=== PATIENT | female | born 1960 | race Caucasian/White ===

== ENCOUNTER → 2017-10-27 | Outpatient (CLI) | payer OTHER ==
--- NOTE | 2017-10-27 15:01 | MM ---
Reason for exam: screening (asymptomatic). Baseline mammogram. History: Patient is postmenopausal. Physical Findings: Nurse did not find any significant physical abnormalities on exam. MG Screening Mammo w CAD Bilateral CC and MLO view(s) were taken. The breast tissue is heterogeneously dense. This may lower the sensitivity of mammography. Focal asymmetry right anterior outer aspect. These results were verbally communicated with the patient and result sheet given to the patient on 10/27/17. ASSESSMENT: Incomplete: need additional imaging evaluation, BI-RAD 0 RECOMMENDATION: Special view mammogram of the right breast. If lesion persists on supplemental views, image directed ultrasound is recommended. [facility] will attempt to contact patient to return for supplemental views and ultrasound if indicated.
--- NOTE | 2017-10-27 15:02 | MM ---
Reason for exam: additional evaluation requested from abnormal screening. History: Patient is postmenopausal. Physical Findings: Breast exam preformed at baseline screening. MG Work Up Mamm w CAD RT Spot compression CC, spot compression MLO, and ML view(s) were taken of the right breast. Finding: There is a 12 mm circumscribed round mass in the upper quadrant, anterior position of the right breast and 7-8mm mass central aspect. These results were verbally communicated with the patient and result sheet given to the patient on 10/27/17. ASSESSMENT: Incomplete: need additional imaging evaluation, BI-RAD 0 RECOMMENDATION: Ultrasound of the right breast.
--- NOTE | 2017-10-27 15:05 | USB ---
Reason for exam: additional evaluation requested from abnormal screening. History: Patient is postmenopausal. US Breast Workup Limited RT Right limited breast ultrasound including focal area of concern, retroareolar and axilla demonstrates a 1.0 x 0.5 x 0.8cm oval, solid, hypoechoic lesion at 12 o'clock with slightly shadowing and a 0.4 x 0.3 x 0.4cm hypoechoic, vascular lesion at 9 o'clock possible benign lymph node. These results were verbally communicated with the patient and result sheet given to the patient on 10/27/17. ASSESSMENT: Suspicious, BI-RAD 4 RECOMMENDATION: Ultrasound core biopsy of the right breast. Called Dr. Early with mammographic findings and has scheduled an appointment for the patient for 11/14/17 at 1:[address] West. Biopsy scheduled for 11/17/17 at 8:00. PRELIMINARY REPORT CALLED AND FAXED TO DR. WEST ON 10/27/17.
== END | disposition home or self-care (01) ==
LOC: RADMAMWWP 12:43
PROVIDERS: ATTEND Family Medicine
DX: Z12.31 Encounter for screening mammogram for malignant neoplasm of breast (principal); R92.8 Other abnormal and inconclusive findings on diagnostic imaging of breast
CPT/HCPCS: 77065; 77067

== ENCOUNTER → 2017-11-14 | Outpatient (CLI) | payer OTHER ==
[2017-11-14 13:44] VITALS: BP 171/80; PULSE 90; RESP 16; TEMP 97.8; BMI 30.4
--- NOTE | 2017-11-14 13:55 | P.GSHP ---
History of Present Illness H&P Date: 11/14/17 Patient is a 57 year old white female who had her first mammogram on . She subsequently had additional views of her right breast and an ultrasound of the right breast. The patient was noted to have a 12 mm circumscribed round mass in the upper quadrant anterior portion of the right breast and a 78 mm mass in the central aspect. On ultrasound the patient was noted to have a 1 cm solid lesion at 12:00 and a slightly shadowing 0.4 cm hypoechoic lesion at 9:00 possibly representing a benign lymph node. The radiographs were reviewed with Dr. Chong from radiology and she would concur that only one lesion would warrant an ultrasound core biopsy and this is the lesion at 12:00. The patient is not feeling masses or lumps in her breast. The patient has no nipple discharge or skin changes of concern. The patient has not had any trauma or infection in the breast. Ann Model Risk Analysis: 1.5% 5 year risk compared with 1.7% average 59 year old female 8.3% life time risk compared with 9.3% for average 59 year old female Family history: 1. father: leukemia () Hormonal History: menarche: 10 : 2, 2 children first at 27, breast fed: none menopause: 50 BCP: 2 years hormones: none Past surgical history: 1. Thyroid resection half 2. Past Medical History: 1. HTN 2. reflux Social History: smoke: none alcohol: none drugs: none - Constitutional Constitutional: Denies chills, Denies fever - EENT Eyes: denies blurred vision, denies pain Ears: deny: decreased hearing, tinnitus Ears, nose, mouth and throat: Denies headache, Denies sore throat - Breasts Breasts: bilateral: as per HPI - Cardiovascular Cardiovascular: Reports high blood pressure - Respiratory Respiratory: Denies cough, Denies 7 - Gastrointestinal Gastrointestinal: Denies abdominal pain, Denies diarrhea, Denies nausea, Denies vomiting - Genitourinary (Female) Genitourinary: Denies dysuria, Denies hematuria - Menstruation Menstruation: Reports postmenopausal - Musculoskeletal Comment: no arthritis Musculoskeletal: Denies myalgias - Integumentary Integumentary: Denies pruritus, Denies rash - Neurological Neurological: Denies numbness, Denies weakness - Psychiatric Psychiatric: Denies anxiety, Denies depression - Endocrine Endocrine: Reports weight change, Denies fatigue - Hematologic/Lymphatic Comment: none - Allergic/Immunologic Comment: none Allergic/Immunologic: Reports as per HPI Past Medical History Past Medical History: GERD/Reflux, Hypertension History of Any Multi-Drug Resistant Organisms: None Reported Past Surgical History: Section Additional Past Surgical History / Comment(s): thyroid surgery 2011 Past Anesthesia/Blood Transfusion Reactions: No Reported Reaction Past Psychological History: No Psychological Hx Reported Smoking Status: Former smoker Past Alcohol Use History: Occasional Past Drug Use History: None Reported Medications and Allergies Home Medications Medication Instructions Recorded Confirmed Type Ascorbic Acid [Vitamin C] 500 mg PO DAILY 11/04/17 11/04/17 History Calcium/Magnesium/Zinc 1 each PO DAILY 11/04/17 11/04/17 History [Blvywqx-Xmykebghy-Gicq Tablet] Famotidine [Pepcid] 20 mg PO DAILY 11/04/17 11/04/17 History Loratadine [Claritin] 10 mg PO DAILY 11/04/17 11/04/17 History Metoprolol Succinate (ER) [Toprol 50 mg PO DAILY 11/04/17 11/04/17 History XL] Allergies Allergy/AdvReac Type Severity Reaction Status Date / Time No Known Allergies Allergy Verified 11/04/17 15:59 Surgical - Exam BP: 171/80 HR: 90 T: 97.8 R: 16 BMI 30.5 - General well developed, well nourished, no distress - Eyes normal ocular movement, no icteric - ENT no hearing loss, no congestion - Neck no masses, trachea midline - Respiratory normal respiratory effort, clear to auscultation - Cardiovascular Rhythm: regular Heart Sounds: normal: S1, S2 - Abdomen Abdomen: soft, non tender, no guarding, no rigid, no rebound - Integumentary normal turger - Neurologic no disoriented, no combative - Musculoskeletal normal gait, normal posture - Psychiatric oriented to time, oriented to person, oriented to place, speech is normal, memory intact Breast Exam: Right breast: Multi-positional exam no dominant masses or nodules of concern, fibrocystic changes Right axilla: No adenopathy of concern Left breast: Multi-positional exam no dominant masses or nodules of concern Left axilla: No adenopathy of concern Results Mammogram and ultrasound reviewed Assessment and Plan Assessment: Impression: 1. Radiographic abnormality right breast 2. Hypertension 3. Reflux 4. Ann risk evaluation below average for development of breast cancer Plan: 1. Ultrasound-guided core biopsy right breast 2. Follow-up after biopsy in 1 week 3. Medical management of medical problems Risk and benefits of ultrasound-guided core biopsy discussed with the patient she'll be scheduled in the near future CC: Dr. Early
== END ==
LOC: WWCWWP 13:00
PROVIDERS: ATTEND Surgery
DX: Z53.9 Procedure and treatment not carried out, unspecified reason (principal)

== ENCOUNTER → 2017-11-17 | Day surgery (SDC) | payer OTHER ==
[2017-11-17 12:19] VITALS: RESP 16; BMI 29.1
--- NOTE | 2017-11-17 13:45 | USB ---
EXAMINATION TYPE: US biopsy breast VAD RT, MG diagnostic mammo RT wo CAD DATE OF EXAM: 11/17/2017 CLINICAL HISTORY: R92.8 ABN MAMMO. Abnormal ultrasound. TECHNIQUE: Ultrasound guided core biopsy of right breast with clip placement and follow-up diagnostic two-view mammogram. COMPARISON: Mammogram and ultrasound October 27, 2017. FINDINGS: The procedure of ultrasound guided core biopsy was explained to the patient. Benefits, alternatives, and risks were discussed. An informed consent was then obtained. The patient was placed in supine positioning for imaging and for the procedure. Preprocedure ultrasound shows redemonstrates 10 x 4 x 7 mm oval hypoechoic area 12:00 position zone A in the right breast. The overlying skin was prepped and draped in usual sterile fashion. Lidocaine buffered with bicarbonate was used as anesthetic into the skin and subcutaneous tissue. Lidocaine with epinephrine is used as anesthetic into the deeper tissue up to area of concern in the right breast. Under ultrasound guidance, a 12-gauge vacuum assisted biopsy gun device was used to obtain 3 core samples. Following this, a biopsy clip was left in lesion. The patient tolerated the procedure well without any immediate complication. The patient was kept in the radiology department for short stay after the procedure and then discharged home in stable condition. Postprocedure mammogram shows successful deployment of clip corresponding to larger area of concern on mammogram. IMPRESSION: Successful, uncomplicated ultrasound guided core biopsy of area of concern in the right breast, full pathology results to follow. Low to intermediate index of suspicion noted at time of procedure. Pathology Results: Benign BREAST, RIGHT, ULTRASOUND GUIDED CORE BIOPSY: Fibroadenoma. Recommendation Follow up ultrasound of the right breast in 6 months. REGINA
[2017-11-17 13:46] VITALS: BP 134/85; PULSE 87; TEMP 98
== END ==
LOC: RADUSWWP 12:00
PROVIDERS: ATTEND Surgery
DX: D24.1 Benign neoplasm of right breast (principal)
CPT/HCPCS: 88305; 77065; 19083; A4648; J2001

== ENCOUNTER → 2017-11-25 | Outpatient (CLI) | payer OTHER ==
[2017-11-25 08:49] VITALS: BP 148/78; PULSE 78; RESP 12; TEMP 98; BMI 29.1
--- NOTE | 2017-11-25 09:07 | P.PN ---
Subjective Progress Note Date: 11/25/17 Principal diagnosis: Patient is status post ultrasound-guided core biopsy of the right breast The patient is a 57-year-old white female who was noted to have a radiographic abnormality in the right breast for which she underwent an ultrasound-guided core biopsy on [id number]. Pathology is consistent with a fibroadenoma. The patient did develop a small hematoma as well as some ecchymosis at the site of the biopsy. She has no evidence of any infection has not complained of any fever or chills. She has had some tenderness in the area but no pain for which she is concerned Objective - Vital Signs Vital signs: Vital Signs Temp 98 F 11/25/17 08:43 Pulse 78 11/25/17 08:43 Resp 12 11/25/17 08:43 BP 148/78 11/25/17 08:43 Pulse Ox 100 11/25/17 08:43 Intake & Output 11/24/17 11/25/17 11/25/17 18:59 06:59 18:59 Weight 79.379 kg - Exam BMI 29.1 - Constitutional General appearance: Present: obese - EENT Eyes: Present: EOMI ENT: Present: hearing grossly normal - Respiratory Respiratory: bilateral: CTA - Cardiovascular Rhythm: regular Heart sounds: normal: S1, S2 - Gastrointestinal General gastrointestinal: Present: soft - Integumentary Integumentary Comment(s): right breast: Right breast ecchymosis at the site of the core biopsy, small hematoma approximately 1 x 1.2 cm in size in the 12:00 area of the breast No other masses or nodules of concern Right axilla: No adenopathy of concern Evidence of any infection at this time - Musculoskeletal Musculoskeletal: Present: gait normal - Psychiatric Psychiatric: Present: A&O x's 3, appropriate affect, intact judgment & insight Assessment and Plan Assessment: Impression: 1. Fibroadenoma via core biopsy right breast 2. Hypertension and treated by medicine 3. Reflux 4. Ann risk evaluation is below average for development of breast cancer Plan: 1. Repeat right breast mammogram and ultrasound in 6 months with physician exam at that time 2. Medical management of medical problems Cc: Dr. Early
== END | disposition home or self-care (01) ==
LOC: WWCWWP 08:36
PROVIDERS: ATTEND Surgery
DX: Z53.9 Procedure and treatment not carried out, unspecified reason (principal)

== ENCOUNTER 2018-04-12 08:55 | Day surgery (SDC) | payer OTHER ==
[2018-04-07 15:42] VITALS: BMI 29.1
--- NOTE | 2018-04-12 08:45 | P.GSHP ---
History of Present Illness H&P Date: 04/12/18 CHIEF COMPLAINT: Colon screen HISTORY OF PRESENT ILLNESS: The patient is a 57-year-old female who presents for colon screen. Lower endoscopy was offered for further evaluation and management. PAST MEDICAL HISTORY: Please see list. PAST SURGICAL HISTORY: Please see list. MEDICATIONS: Please see list. ALLERGIES: Please see list. SOCIAL HISTORY: No illicit drug use FAMILY HISTORY: No reports of Crohn disease or ulcerative colitis. REVIEW OF ORGAN SYSTEMS: CONSTITUTIONAL: No reports of fevers or chills. PHYSICAL EXAM: VITAL SIGNS: Stable GENERAL: Well-developed pleasant in no acute distress. HEENT: No scleral icterus. Extraocular movements grossly intact. Moist buccal mucosa. NECK: Supple without lymphadenopathy. CHEST: Unlabored respirations. Equal bilateral excursions. CARDIOVASCULAR: Regular rate and rhythm. Distal 2+ pulses. ABDOMEN: Soft, nontender, nondistended. MUSCULOSKELETAL: No clubbing, cyanosis, or edema. ASSESSMENT: 1. Colon screen. PLAN: 1. Recommend proceeding with a lower endoscopy Past Medical History Past Medical History: GERD/Reflux, Hypertension Additional Past Medical History / Comment(s): seasonal allergies History of Any Multi-Drug Resistant Organisms: None Reported Past Surgical History: Section Additional Past Surgical History / Comment(s): thyroid surgery 2012 Past Anesthesia/Blood Transfusion Reactions: No Reported Reaction Smoking Status: Former smoker - Past Family History Father Family Medical History: Cancer Additional Family Medical History / Comment(s): leukemia Mother Family Medical History: Dementia, Deep Vein Thrombosis (DVT) Medications and Allergies Home Medications Medication Instructions Recorded Confirmed Type Famotidine [Pepcid] 20 mg PO DAILY PRN 11/04/17 04/07/18 History Loratadine [Claritin] 10 mg PO DAILY 11/04/17 04/07/18 History Metoprolol Succinate (ER) [Toprol 50 mg PO QAM 11/04/17 04/07/18 History XL] Multivitamins, Thera [Multivitamin 1 tab PO DAILY 04/07/18 04/07/18 History (formulary)] Allergies Allergy/AdvReac Type Severity Reaction Status Date / Time No Known Allergies Allergy Verified 04/07/18 15:34
[~2018-04-12 08:55] MED LIST: LACTATED RINGERS 1,000 ML IV SCH
[2018-04-12 09:33] VITALS: TEMP 98.7
[2018-04-12] MEDS ORDERED: LACTATED RINGERS 1,000 ML IV ONE (09:33)
[2018-04-12] MEDS ORDERED: LIDOCAINE 1% 20 ML VIAL (10MG/ML) FOR IV START INTRADERMA ONE (09:33)
[2018-04-12] MEDS ORDERED: PROPOFOL 10 MG/ML 20 ML VIAL IV ONE (10:13)
--- NOTE | 2018-04-12 10:40 | P.PCN ---
Date of Procedure: 04/12/18 Description of Procedure: PREOPERATIVE DIAGNOSIS: Colonoscopy screening, first POSTOPERATIVE DIAGNOSIS: Colonoscopy screening, first Diverticulosis, scattered. OPERATION: Colonoscopy to the ileocecal valve and appendiceal orifice. SURGEON: Ruby Iraheta MD. ANESTHESIA: MAC. INDICATIONS: The patient is a 57-year-old female who presents for her first colonoscopy screening. Benefits and risks were described and informed consent was obtained. DESCRIPTION OF PROCEDURE: The patient had undergone Gatorade, MiraLAX and Dulcolax prep. She had been brought into the operating room and laid in the left lateral decubitus position. After adequate intravenous sedation, the rectum was examined with 2% lidocaine jelly. No external hemorrhoids were encountered. The rectal tone was within normal limits. No lesions were palpated in the rectal vault. An Olympus colonoscope was advanced until the ileocecal valve and appendiceal orifice were clearly viewed. The prep was excellent with clear visualization of the mucosal folds. The scope was removed with visualization of each mucosal fold. Scattered diverticulosis was encountered. No colonic polyps were found. No evidence of focal colitis was found. No internal hemorrhoids were found. The colon was desufflated. The patient had tolerated the procedure well. Withdrawal time was over 6 minutes. FINDINGS: No internal hemorrhoids No external prolapsed hemorrhoids. No arteriovenous malformations. No adenomatous polyps. No focal colitis. Small-mouth minimal scattered diverticulosis RECOMMENDATIONS: Lower endoscopy in 10 years, 2028 Plan - Discharge Summary Discharge Rx Participant: No New Discharge Prescriptions: No Action Metoprolol Succinate (ER) [Toprol XL] 50 mg PO QAM Famotidine [Pepcid] 20 mg PO DAILY PRN PRN Reason: Dyspepsia Loratadine [Claritin] 10 mg PO DAILY Multivitamins, Thera [Multivitamin (formulary)] 1 tab PO DAILY Discharge Medication List Famotidine [Pepcid] 20 mg PO DAILY PRN 11/04/17 [History] Loratadine [Claritin] 10 mg PO DAILY 11/04/17 [History] Metoprolol Succinate (ER) [Toprol XL] 50 mg PO QAM 11/04/17 [History] Multivitamins, Thera [Multivitamin (formulary)] 1 tab PO DAILY 04/07/18 [History ] Follow up Appointment(s)/Referral(s): Ruby Iraheta MD [STAFF PHYSICIAN] - As Needed Patient Instructions/Handouts: Diverticulosis Diet (GEN), Diverticulosis (GEN) Activity/Diet/Wound Care/Special Instructions: Repeat colonoscopy in 10 years, 2028 Discharge Disposition: HOME SELF-CARE
[2018-04-12 10:44] VITALS: RESP 16
[2018-04-12 10:57] VITALS: BP 133/73; PULSE 64
== END 2018-04-12 11:07 | disposition home or self-care (01) ==
LOC: ORWHC2ENDO 08:55
PROVIDERS: ATTEND Surgery Plastic and Reconstructive Surgery
DX: Z12.11 Encounter for screening for malignant neoplasm of colon (principal); K57.30 Diverticulosis of large intestine without perforation or abscess without bleeding; K21.9 Gastro-esophageal reflux disease without esophagitis; I10 Essential (primary) hypertension; E04.1 Nontoxic single thyroid nodule; Z87.891 Personal history of nicotine dependence; Z79.899 Other long term (current) drug therapy
CPT/HCPCS: J2704; G0121

== ENCOUNTER → 2022-07-17 | Outpatient (CLI) | payer BC ==
--- NOTE | 2022-07-18 19:08 | XR ---
EXAMINATION TYPE: XR knee complete RT DATE OF EXAM: 07/17/2022 9:13 AM INDICATION: Patient age:Female; 62 years old; Reason for study: M25.561 pain R knee COMPARISON: None. TECHNIQUE: The Right knee(s) was examined in Frontal, lateral and oblique projections. FINDINGS: No evidence of any acute osseous pathology, soft tissue swelling, or joint effusion is no wing. Bony outpouching near the distal medial femoral metaphysis with continuous cortex. Degeneration changes with osteophytes of the femoral condyles, patella and the tibial plateau. Mild j oint space narrowing involving the medial knee. IMPRESSION: 1. No acute osseous pathology. 2. Mild tricompartmental osteoarthritic changes. 3. Suspected osteochondroma of the medial right femur. Consider further evaluation with MRI of the ri ght femur clinically warranted.
== END | disposition home or self-care (01) ==
LOC: RADXRMAIN 08:56
PROVIDERS: ATTEND Family Medicine
DX: M17.11 Unilateral primary osteoarthritis, right knee (principal)

== ENCOUNTER → 2023-11-11 | Outpatient (CLI) | payer MEDICARE ==
--- NOTE | 2023-11-11 14:16 | MM ---
Reason for Exam: Screening (asymptomatic). Last mammogram was performed 6 year(s) and 1 month(s) ago. Patient History: Menarche at age 10. First Full-Term at age 27. Postmenopausal. 11/17/2017, Benign Core Biopsy on the right side. Risk Values: Ann 5 year model risk: 2.2%. NCI Lifetime model risk: 8.2%. Prior Study Comparison: 10/27/2017 Bilateral Screening Mammogram, [facility]. 10/27/2017 Right Diagnostic Mammogram, [facility]. 11/17/2017 Right Diagnostic Mammogram, [facility]. Tissue Density: There are scattered areas of fibroglandular density. Findings: Analyzed By CAD. There is no suspicious group of microcalcifications or new suspicious mass in either breast. Overall Assessment: Benign, BI-RAD 2 Management: Screening Mammogram of both breasts in 1 year. . Patient should continue monthly self-breast exams. A clinical breast exam by your physician is recommended on an annual basis. This exam should not preclude additional follow-up of suspicious palpable abnormalities. Note on Ann scores and lifetime risk: 1. A Ann score greater than 3% is considered moderate risk. If this is the case, consider specialist referral to assess eligibility for a risk reducing agent. 2. If overall lifetime risk for the development of breast cancer is 20% or higher, the patient may qualify for future screening with alternating mammogram and breast MRI. [facility], , 11/11/2023 2:13 PM. Electronically signed and approved by: Primo Fong M.D. Radiolog[facility]
== END | disposition home or self-care (01) ==
LOC: RADMAMWWP 09:33
PROVIDERS: ATTEND Family Medicine
DX: Z12.31 Encounter for screening mammogram for malignant neoplasm of breast
CPT/HCPCS: 77063; 77067